=== PATIENT | male | born 1975 | race Caucasian/White ===

== ENCOUNTER 2024-08-17 07:09 | Day surgery (SDC) | payer BC ==
[2024-08-14 15:15] VITALS: BMI 28.0
[~2024-08-17 07:09] MED LIST: DEXAMETHASONE SOD PHOSPHATE 4 MG/ML 1 ML VIAL IV ONE; ONDANSETRON 4 MG/2 ML VIAL IVP ONE
[2024-08-17 07:27] VITALS: TEMP 97.2
[2024-08-17] MEDS: LACTATED RINGERS 1,000 ML IV SCH (07:39)
[2024-08-17] MEDS: IV FLUID CONTINUATION 1,000 ML IV ONE (07:39)
[2024-08-17] MEDS ORDERED: PROPOFOL 10 MG/ML 20 ML VIAL IV ONE (07:59)
--- NOTE | 2024-08-17 08:13 | P.PCN ---
Date of Procedure: 08/17/24 Preoperative Diagnosis: Screening Postoperative Diagnosis: Sigmoid colon polyp Rectal polyp External hemorrhoid Procedure(s) Performed: Colonoscopy with forcep polypectomy Anesthesia: MAC Surgeon: Dayana Reich Pathology: other (Sigmoid polyp, rectal polyp) Condition: stable Disposition: same day Indications for Procedure: 48-year-old male presents today for screening colonoscopy. He has never had colonoscopy previously. States he has history of hemorrhoids. No family history of colon cancer, no family history of inflammatory bowel disease. Risks, benefits and alternatives were provided. All questions answered Operative Findings: Sigmoid colon polyp Rectal polyp External hemorrhoid Description of Procedure: The patient was brought to the endoscopy suite and placed in left lateral decubitus position and adequate sedation was achieved using conscious sedation. Digital rectal exam was performed and moderate inflamed external hemorrhoids were palpated. An endoscope was then placed in the rectum and advanced to the cecum as identified by landmarks including the appendiceal orifice and the ileocecal valve. The prep was good. The colonoscope was then slowly withdrawn, examining for any mucosal abnormalities. The cecum, ascending, transverse, descending and sigmoid colon were visualized adequately. There were no large neoplastic lesions noted throughout the colon. No evidence of diverticulosis. Small flat polyp was noted in the sigmoid colon and this was removed with forcep polypectomy. Hemostasis was maintained. Additional small polyp was noted in the rectum. This was removed with forcep polypectomy. Hemostasis was maintained. Retroflexion was performed in the rectum and internal hemorrhoid. Excess air was removed, the colonoscope withdrawn and the procedure terminated. The patient was then transferred to the recovery unit in stable condition. Repeat colonoscopy should be performed in 5 years.
[2024-08-17 08:42] VITALS: BP 140/62; PULSE 56; RESP 17
== END 2024-08-17 08:56 | disposition home or self-care (01) ==
LOC: ORWHC2ENDO 07:09
PROVIDERS: ATTEND Surgery
DX: Z12.11 Encounter for screening for malignant neoplasm of colon (principal); K63.5 Polyp of colon; K62.1 Rectal polyp; K64.4 Residual hemorrhoidal skin tags
CPT/HCPCS: 45380; J2704; 88305